=== PATIENT | female | born 1995 | race Caucasian/White ===

== ENCOUNTER 2023-07-05 07:42 | Outpatient (CLI) | payer BC, SELFPAY | END 2023-07-05 07:43 | disposition home or self-care (01) | LOC: NFLDREF 07-17 11:49 | PROVIDERS: Visit Provider Obstetrics & Gynecology | DX: Z13.220 Encounter for screening for lipoid disorders (principal); Z13.228 Encounter for screening for other metabolic disorders | CPT/HCPCS: 80048; 80061 ==

== ENCOUNTER 2024-01-28 16:42 | Outpatient (CLI) | payer OTHER, SELFPAY ==
--- NOTE | 2024-01-28 17:00 | CRLHL7_ITS ---
For Patients: As a result of the Cures Act, medical imaging exams and procedure reports are released immediately into your electronic medical record. You may view this report before your referring provider. If you have questions, please contact your health care provider. INDICATION: First trimester scan, establish dates. COMPARISON: None. TECHNIQUE: Real-time baca-scale imaging of the pelvis was performed. FINDINGS: Sonographic imaging demonstrates a single living intrauterine gestation. The embryo demonstrates a regular cardiac rate measuring 176 beats per minute. The embryo`s crown-rump length measurement of 2.2 cm corresponds to a gestational age of 8 weeks 6 days with a sonographic due date of 09/02/2024. There is a normal-appearing yolk sac. There are no gross abnormalities noted within the embryo at this early state of development. The gestational sac has a normal appearance. There is a 2.5 x 0.6 x 2.2 cm perigestational hemorrhage. The amount of fluid within the sac appears appropriate for gestational age. The cervix is closed. The myometrium appears normal. The ovaries are of normal size. Corpus luteal cyst right ovary. There are no suspicious fluid collections noted in the cul-de-sac. IMPRESSION: Single living intrauterine with sonographic gestational age 8 weeks 6 days and sonographic due date of 09/02/2024. Subchorionic hemorrhage measures 2.5 x 0.6 x 2.2 cm. Dictated by Shad Jacques MD @ 01/29/2024 12:14:15 PM (Electronically Signed)
== END 2024-01-28 16:43 | disposition home or self-care (01) ==
LOC: US 16:44
PROVIDERS: Visit Provider Physician Assistant
DX: Z34.91 Encounter for supervision of normal pregnancy, unspecified, first trimester (principal); O20.9 Hemorrhage in early pregnancy, unspecified; Z3A.08 8 weeks gestation of pregnancy
CPT/HCPCS: 76817; 86592; 86703; 86704; 86706; 86762; 86787; 86803; 86850; 86900; 86901; 87086; 87340; 87491; 87591

== ENCOUNTER 2024-01-28 18:18 | Outpatient (CLI) | payer OTHER, SELFPAY ==
[2024-01-28 21:07] LABS: Chlamydia DNA Amplified* NOT DETECTED (No Detected); GC DNA Amplified* NOT DETECTED (No Detected)
== END 2024-01-28 18:19 | disposition home or self-care (01) ==
PROVIDERS: Visit Provider Physician Assistant
DX: Z34.91 Encounter for supervision of normal pregnancy, unspecified, first trimester (principal); Z3A.08 8 weeks gestation of pregnancy
CPT/HCPCS: 86592; 86703; 86704; 86706; 86762; 86787; 86803; 86850; 86900; 86901; 87086; 87340; 87491; 87591

== ENCOUNTER 2024-04-21 07:15 | Outpatient (CLI) | payer OTHER, SELFPAY ==
--- NOTE | 2024-04-21 07:15 | CRLHL7_ITS ---
For Patients: As a result of the Century Cures Act, medical imaging exams and procedure reports are released immediately into your electronic medical record. You may view this report before your referring provider. If you have questions, please contact your health care provider. HISTORY: anatomic survey. COMPARISON: Report of the early OB ultrasound from 01/28/2024 TECHNIQUE: Ultrasound examination of the is performed with transabdominal technique. FINDINGS: A single intrauterine gestation is seen in variable presentation with regular cardiac activity at 155 beats per minute. The placenta is posterior and is free of the cervical os. The placental grade is 0 and the amniotic fluid volume is normal. Single deepest vertical pocket: 3.4. The cervix is nondilated and is normal in length at 4.0 cm. BPD: 4.5 cm 19 weeks 5 days HC: 18.0 cm 20 weeks 3 days AC: 15.3 cm 20 weeks 3 days. Thirty-sixth percentile. FL: 3.0 cm 19 weeks 3 days The estimated age by ultrasound is 20 weeks 0 days, with an estimated date of delivery of 09/08/2024. This represents a slight decrease interatrial growth compared with the clinical age of 20 weeks 5 days and the previous ultrasound.. The ultrasound ratios are normal. The estimated weight of 330 grams is at the 14th percentile based on the clinical dates. The anatomic survey demonstrates normal appearing intracranial structures with a normal septum pellucidum and normal cerebellum. The nuchal thickness is normal at 5 mm, and the lateral ventricle is normal in diameter at 4 mm. The upper lip, 4 chamber heart, left and right ventricular outflow tracts, diaphragm, stomach, cord insertion site, 3-vessel cord, kidneys, bladder and spine are normal in appearance. IMPRESSION: 1. Single intrauterine gestation in variable presentation with regular cardiac activity. 2. Estimated gestational age is 20 weeks 0 days. 3. Slight decrease interatrial growth compared with the clinical age of 20 weeks 5 days and the previous ultrasound.. 4. Estimated weight of 330 grams is at the 14th percentile based on the clinical dates. Dictated by Octavio Alvarado MD @ 04/21/2024 11:34:28 AM (Electronically Signed)
== END 2024-04-21 07:16 | disposition home or self-care (01) ==
LOC: US 07:15
PROVIDERS: Visit Provider Obstetrics & Gynecology
DX: Z34.92 Encounter for supervision of normal pregnancy, unspecified, second trimester (principal); Z3A.20 20 weeks gestation of pregnancy
CPT/HCPCS: 76805

== ENCOUNTER 2024-06-10 08:00 | Outpatient (CLI) | payer OTHER, SELFPAY | END 2024-06-10 08:01 | disposition home or self-care (01) | LOC: NFLDREF 06-15 02:40 | PROVIDERS: Visit Provider Obstetrics & Gynecology | DX: Z34.82 Encounter for supervision of other normal pregnancy, second trimester (principal) | CPT/HCPCS: 86592 ==

== ENCOUNTER 2024-07-10 07:04 | Outpatient (CLI) | payer OTHER, SELFPAY | END 2024-07-10 07:05 | disposition home or self-care (01) | LOC: US 07:05 | PROVIDERS: Visit Provider Obstetrics & Gynecology | DX: O36.5930 Maternal care for other known or suspected poor fetal growth, third trimester, not applicable or unspecified (principal); Z3A.30 30 weeks gestation of pregnancy | CPT/HCPCS: 76816; 76819; 76820 ==

== ENCOUNTER 2024-07-16 09:10 | Outpatient (CLI) | payer OTHER, SELFPAY ==
--- NOTE | 2024-07-16 09:15 | CRLHL7_ITS ---
For Patients: As a result of the Century Cures Act, medical imaging exams and procedure reports are released immediately into your electronic medical record. You may view this report before your referring provider. If you have questions, please contact your health care provider. INDICATION: IUGR COMPARISON: 07/10/2024 TECHNIQUE: Color doppler and spectral Doppler analysis of the umbilical artery performed. FINDINGS: Sonographic imaging demonstrates a single living intrauterine gestation. Fetus demonstrates a regular cardiac rate of 146 beats per minute. Fetus has a vertex. The umbilical artery demonstrates adequate diastolic blood flow. The S/D ratio measures 2.5. The amniotic fluid volume appears normal and there is a single deepest pocket measurement of 3.3 cm. IMPRESSION: Normal SD ratio 2.5. Dictated by Shad Jacques MD @ 07/16/2024 1:07:30 PM (Electronically Signed)
== END 2024-07-16 09:11 | disposition home or self-care (01) ==
LOC: US 09:11
PROVIDERS: Visit Provider Obstetrics & Gynecology
DX: O36.5990 Maternal care for other known or suspected poor fetal growth, unspecified trimester, not applicable or unspecified (principal)
CPT/HCPCS: 76815; 76820

== ENCOUNTER 2024-07-24 09:58 | Outpatient (CLI) | payer OTHER, SELFPAY ==
--- NOTE | 2024-07-24 10:00 | CRLHL7_ITS ---
For Patients: As a result of the Cures Act, medical imaging exams and procedure reports are released immediately into your electronic medical record. You may view this report before your referring provider. If you have questions, please contact your health care provider. OB ULTRASOUND FOLLOWUP LIMITED, 07/24/2024 CLINICAL HISTORY: IUGR. TECHNIQUE: Real time baca scale imaging of the fetus was performed transabdominally. COMPARISON: 07/16/2024, 07/10/2024, 04/21/2024. FINDINGS: ALVINO by LMP: 09/03/2024. GA: 34 weeks 1 day. Gestation: Single. Cervix: Not visualized. Positioning: Vertex. Amniotic Fluid: 5.6 cm SDP. Placenta: Transabdominal. Placenta Position: Posterior. Dopplers: Heart Rate: 145 bpm. Umbilical Artery: 2.2-2.4 S/D. IMPRESSION: Adequate diastolic flow within the umbilical artery with S/D ratio measuring between 2.2-2.4, within normal limits. Shad Jacques M.D. Diagnostic Radiologist [email or web address] Transcribed: 11:39 am DW/Dictated by: Shad Jacques MD @ 07/24/2024 10:33:00 AM (Electronically Signed)
== END 2024-07-24 09:59 | disposition home or self-care (01) ==
LOC: US 09:59
PROVIDERS: Visit Provider Obstetrics & Gynecology
DX: O36.5930 Maternal care for other known or suspected poor fetal growth, third trimester, not applicable or unspecified (principal); Z3A.34 34 weeks gestation of pregnancy
CPT/HCPCS: 76815; 76820

== ENCOUNTER 2024-07-31 12:54 | Outpatient (CLI) | payer OTHER, SELFPAY ==
--- NOTE | 2024-07-31 13:00 | CRLHL7_ITS ---
For Patients: As a result of the Century Cures Act, medical imaging exams and procedure reports are released immediately into your electronic medical record. You may view this report before your referring provider. If you have questions, please contact your health care provider. INDICATION: IUGR TECHNIQUE: Ultrasound OB pelvis transabdominal. Real-time baca-scale imaging of the fetus was performed as well as color Doppler and spectral Doppler analysis of the umbilical artery. COMPARISON: Ob ultrasound 07/24/2024 FINDINGS: Single living intrauterine gestation. heart rate: 166 beats per minute. Presentation: Cephalic. Placenta: Posterior. Amniotic fluid deepest pocket: 5.2 cm. Umbilical artery S/D ratio: 2 Gestational age: 35 weeks 1 day. ALVINO: 09/03/2024 IMPRESSION.: Viable intrauterine . No abnormalities seen. Adequate diastolic flow within the umbilical artery with S/D ratio of 2, within normal limits Dictated by Roula Porras MD @ 08/03/2024 12:13:03 PM (Electronically Signed)
== END 2024-07-31 12:55 | disposition home or self-care (01) ==
LOC: US 12:55
PROVIDERS: Visit Provider Obstetrics & Gynecology
DX: O36.5930 Maternal care for other known or suspected poor fetal growth, third trimester, not applicable or unspecified (principal); Z3A.35 35 weeks gestation of pregnancy
CPT/HCPCS: 76815; 76820

== ENCOUNTER 2024-08-06 08:04 | Outpatient (CLI) | payer OTHER, SELFPAY ==
--- NOTE | 2024-08-06 08:15 | CRLHL7_ITS ---
For Patients: As a result of the Century Cures Act, medical imaging exams and procedure reports are released immediately into your electronic medical record. You may view this report before your referring provider. If you have questions, please contact your health care provider. INDICATION: IUGR TECHNIQUE: Limited transabdominal two-dimensional baca-scale ultrasound examination. COMPARISON: 07/31/2024 FINDINGS: There is a living fetus in cephalic lie with gestational age of 36 weeks by LMP and 34 weeks 3 days by today`s measurements. EDC based on LMP is 09/03/2024. BPD: 8.8 cm, 35 weeks 5 days Head circumference: 31.9 cm, 36 weeks Abdominal circumference: 30.7 cm, 34 weeks 4 days Femur length: 6.0 cm, 31 weeks 2 days HC/AC: 1.04 The weight is estimated at 2312 grams, the 8th percentile. The heart rate is measured at 147 beats per minute and the rhythm appears regular. The amniotic fluid volume is within normal limits with single deepest pocket of 6.1 cm. The placenta is posterior and superior to the cervical os. There is no evidence of previa. Cord arterial S/D = 2.8. IMPRESSION: 1. Living fetus in cephalic lie with gestational age of 36 weeks by LMP and 34 weeks 3 days by today`s measurements. EDC based on LMP is 09/03/2024. 2. weight estimated at 2312 grams, the 8th percentile. Dictated by Percy House MD @ 08/07/2024 5:11:13 AM (Electronically Signed)
== END 2024-08-06 08:05 | disposition home or self-care (01) ==
LOC: US 08:05
PROVIDERS: Visit Provider Obstetrics & Gynecology
DX: O36.5930 Maternal care for other known or suspected poor fetal growth, third trimester, not applicable or unspecified (principal); Z3A.35 35 weeks gestation of pregnancy
CPT/HCPCS: 76816; 76820

== ENCOUNTER 2024-08-06 10:38 | Outpatient (CLI) | payer OTHER, SELFPAY ==
[2024-08-07 12:42] LABS: Strep B DNA Probe Negative (Negative)
[2024-08-07 12:49] LABS: Strep B Susceptibility Needed? No
== END 2024-08-06 10:39 | disposition home or self-care (01) ==
LOC: NFLDREF 10:38
PROVIDERS: Visit Provider Obstetrics & Gynecology
DX: Z34.82 Encounter for supervision of other normal pregnancy, second trimester (principal)
CPT/HCPCS: 87081; 87653

== ENCOUNTER 2024-08-13 12:13 | Outpatient (CLI) | payer OTHER, SELFPAY ==
--- NOTE | 2024-08-13 12:15 | CRLHL7_ITS ---
For Patients: As a result of the Cures Act, medical imaging exams and procedure reports are released immediately into your electronic medical record. You may view this report before your referring provider. If you have questions, please contact your health care provider. OB ULTRASOUND LIMITED W/UMBILICAL ARTERY DOPPLER, 08/13/2024 CLINICAL HISTORY: IUGR. COMPARISON: 08/06/2024, 07/31/2024, 07/24/2024. TECHNIQUE: Real time baca scale imaging of the fetus was performed transabdominal. FINDINGS: ALVINO by LMP/US: 09/03/2024. GA: 37 weeks 0 days. GESTATION: Single. CERVIX: Not visualized. POSITIONING: Vertex. AMNIOTIC FLUID: 4.2 cm SDP. PLACENTA: Technique: TA. Placenta Position: Posterior. DOPPLERS: Heart Rate: 152 bpm. Umbilical Artery 2.4 S/D. IMPRESSION: Umbilical artery S/D ratio 2.4. Shad Jacques M.D. Diagnostic Radiologist [email or web address] Transcribed: 9:47 am DW/Dictated by: Shad Jacques MD @ 08/14/2024 6:53:00 AM (Electronically Signed)
== END 2024-08-13 12:14 | disposition home or self-care (01) ==
LOC: US 12:14
PROVIDERS: Visit Provider Obstetrics & Gynecology
DX: O36.5930 Maternal care for other known or suspected poor fetal growth, third trimester, not applicable or unspecified (principal); Z3A.37 37 weeks gestation of pregnancy
CPT/HCPCS: 76815; 76820

== ENCOUNTER 2024-08-19 12:12 | Outpatient (CLI) | payer OTHER, SELFPAY ==
--- NOTE | 2024-08-19 12:15 | CRLHL7_ITS ---
For Patients: As a result of the Cures Act, medical imaging exams and procedure reports are released immediately into your electronic medical record. You may view this report before your referring provider. If you have questions, please contact your health care provider. AVLINO: 09/03/2024. GA: 37w, 6d. Single. INDICATION: IUGR. CERVIX: Not visualized. POSITIONING: Vertex. AMNIOTIC FLUID: 5.5 cm SDP. PLACENTA: Technique: Transabdominal. PLACENTA POSITION: Posterior. DOPPLER: heart rate: 167 bpm. Umbilical artery: 2.5 S/D. IMPRESSION: Umbilical artery S/D ratio 2.5. Shad Jacques M.D. Diagnostic Radiologist [email or web address] bM/Dictated by: Shad Jacques MD @ 08/19/2024 12:40:00 PM (Electronically Signed)
== END 2024-08-19 12:13 | disposition home or self-care (01) ==
LOC: US 12:13
PROVIDERS: Visit Provider Obstetrics & Gynecology
DX: O36.5930 Maternal care for other known or suspected poor fetal growth, third trimester, not applicable or unspecified (principal); Z3A.37 37 weeks gestation of pregnancy
CPT/HCPCS: 76815; 76820

== ENCOUNTER 2024-08-21 16:35 | Inpatient (IN) | payer OTHER, SELFPAY ==
[2024-08-21 16:58] VITALS: BP 114/68; PULSE 86; PULSE 87; TEMP 36.9; O2SAT 98
[2024-08-21 17:44] VITALS: BMI 31.4
--- NOTE | 2024-08-21 18:08 | P.LDBA_ITS ---
Subjective History of Present Illness Narrative: Patient is being admitted to Labor and Delivery for IOL due to IUGR. She is a 29 year old at 38 1/7 weeks gestation. Her full history and physical was dictated by Dr. NOVAK on 08/13/24. Please see this for details. Specific Issues/Plans G 2 P 1 Partner: Nikolai. Son: Elian. Baby: Girl! Niurka Mcmillan test: low risk, female H&P: By KISHORE on 08/13/2024 # IUGR dx made at 32-week visit: EFW 4.9%, AC 19%, FL<3%, normal Dopplers, fluid normal - antepartum testing worksheet submitted * UA Dopplers weekly * NST weekly * Growth US at 36 weeks: EFW 2312g at 8%ile (FL <3%ile). Normal UA doppler/MVP. * Delivery at 38-39 weeks * Declined MFM visit at 33wks. # Nausea and vomiting in [place] was causing insomnia, offered RX, pt declined # FAS US: EFW 13.8%, BPD 12.1%, HC 27.4%, AC 36.1, FL 6.8% Consider follow-up growth ultrasound at 28-32 weeks: Ordered for 32 weeks at her 28 week visit. 08/06/24 EFW 2312 grams, 8th percentile. Imagin01/28/2024 Dating and viability 04/21/2024 FAS normal, EFW 14%, AC 36% 07/10/2023 EFW 3# 7oz (4.9%), BPD 16%, HC 23%, AC 19%, FL<3%, SDP 4.3 cm, S/D 2.9 (normal) 07/16/2024 S/D 2.5, SDP 3.3 cm, vertex 08/06/2024: EFW 2312g at 8%ile (FL <3%ile). Normal UA doppler/MVP. Vaccinations: COVID: 03/17/2024 Flu: 03/17/2024 Tdap: 07/01/2024 RSV: N/A 32 week mental health: 07/10/24 Hgb: 07/24/24 12.1 GBS: 08/06/24 Negative. Pap: 07/12/2021:LGSIL/-HPV, 11/01 colp benign, pap 06/18/23: NIL/-HPV, repeat pap PP OB - Problem Based A/P Additional Plan (1) IUGR (intrauterine growth restriction) affecting care of mother: Problem details: EFW 4.9% at 32 weeks Status: Acute (2) : Status: Acute Plan 1. IOL started with placement of cook catheter 60mL/60mL, plan to also start IV Oxytocin at midnight per protocol. 2. GBS negative, no need for antibiotic prophylaxis. 3. Continuous monitoring. 4. Patient would like epidural prior to AROM. OB Exam Physical Exam Vital signs: Temp Pulse BP Pulse Ox 98.4 F 86 114/68 98 08/21/24 16:58 08/21/24 16:58 08/21/24 16:58 08/21/24 16:58 Detailed Labor and Delivery Exam Patient Gravid: Yes Dilation (cm): 1 Effacement (%): 70 Cervix position: posterior Consistency: medium Fetus (Single) Station: -2 Amniotic Membrane Status: intact Heart Rate Baseline: 140 Monitor Accelerations: Present Monitor Decelerations: None Sql Etl Developer Variability: Moderate (6-25)
[2024-08-21 19:27] VITALS: BP 94/52; PULSE 69; PULSE 71; TEMP 36.8; O2SAT 96
[2024-08-21 20:54] LABS: Basophils Percent Auto 0.1 % (0.0-3.0); Eosinophils Percent Auto 0.2 % (0.0-7.0); Hemoglobin* 12.5 gm/dL (12.0-16.0); Immature Granulocytes Pct Auto 0.4 %; Lymphocytes Percent Auto 23.1 % (20-44); Mean Corpuscular HGB Conc 34 gm/dL (32-36); Mean Corpuscular Hemoglobin 31 pg (26-34); Mean Corpuscular Volume 92 fL (80-100); Monocytes Percent Auto 5.9 % (0.0-11.0); Neutrophils Percent Auto 70.3 % (42.0-72.0); Platelet Count* 248 K/uL (140-440); Red Blood Count 4.04 m/uL (4.00-5.20); White Blood Count* 11.28 K/uL (4.50-11.00)
[2024-08-21 20:59] LABS: Slide Review Reflex No
[2024-08-21] MEDS: MORPHINE 10 MG/ML inj IM (21:46)
[2024-08-21] MEDS: hydrOXYzine pamoate 25 MG CAPSULE 100 MG PO (21:47)
[2024-08-21 22:00] VITALS: TEMP 36.7
[2024-08-21] MEDS: LACTATED RINGERS 1000 ML 1,000 ML 125 ML IV (23:54)
[2024-08-21] MEDS: OXYTOCIN 30 unit/500 ML in NS 30 UNIT/500 ML BAG IVPB (23:55)
[2024-08-21 23:59] VITALS: BP 94/53; PULSE 83; TEMP 36.9
[2024-08-22] VITALS (39 sets, daily range): BP systolic 82–124; BP diastolic 45–69; PULSE 62–108; RESP 16–18; TEMP 36.6–37.3; O2SAT 92–100
[2024-08-22] MEDS: ROPIVACAINE 0.2% 100 ml 100 ML 12 MG EPIDURAL (07:32)
[2024-08-22] MEDS: LIDOCAINE 2% (PF) 5 ML VIAL EPIDURAL (07:32)
[2024-08-22] MEDS: LACTATED RINGERS 1000 ML 1,000 ML 115 ML IV (07:40)
--- NOTE | 2024-08-22 07:55 | PM.ANBPRC ---
[facility] Medical History History of vaginal delivery (02/14/21) History of abnormal cervical Pap smear (06/17/20) ?Z87.42 - Personal history of other diseases of the female genital tract (ICD-10) Surgical History History of epidermal inclusion cyst excision ?Z98.890 - Other specified postprocedural states (ICD-10) ?Z87.2 - Personal history of diseases of the skin and subcutaneous tissue (ICD-10) History of wisdom tooth extraction (2019) ?K08.409 - Partial loss of teeth, unspecified cause, unspecified class (ICD-10) History of colposcopy ?Z98.890 - Other specified postprocedural states (ICD-10) Family History Paternal Grandmother Stroke Paternal Grandfather Stroke Maternal Grandfather Heart disease High cholesterol Mother Scoliosis Aunt Colon cancer Social History Narrative: Occupation: Occupational therapist. Marital status: . Uatsdin/cultural needs: no. Chemical or radiation exposure: no. Pre- tobacco use: no. Pre- alcohol use: 1-3 per month. Current tobacco use: no. Current alcohol use: no. Recreational drug use: no. Dietary restrictions: no. Blood transfusion acceptable in an emergency: yes. PSYCHOSOCIAL HISTORY: History of depression or currently depressed: Denies. Current or past physical, emotional, or sexual mistreatment: Denies. Problems that will make it hard to make it to appointments: Denies. What is your current living situation?: I presently have a place to live Problems where you live: no known problems In the past 12 months, utilities in danger of being shut off: no In past 12 months, lack of transportation kept you from medical appts, meetings, work, or getting things needed for daily living: no In the past 12 mos, have been you worried that your food would run out before you had money to buy more?: never true In the past 12 mos, the food you bought just didn't last and you didn't have money to buy more?: never true Smoking Status: Never smoker How often does anyone, including family, friends and others, physically hurt you: never How often does anyone, including family, friends and others, insult or talk down to you: never How often does anyone, including family, friends and others, threaten you with harm: never How often does anyone, including family, friends and others, scream or curse at you: never Meds Home Medications and Allergies Home Medications ?Medication ?Instructions ?Recorded ?Confirmed ?Type [id number] 3-fat com #1 27 1 cap PO .daily 01/28/24 08/21/24 History mg-1 mg-300 mg capsule Allergies Allergy/AdvReac Type Severity Reaction Status Date / Time dextromethorphan (From Allergy Intermediate Hives Verified 08/21/24 17:04 Mucinex DM) guaifenesin (From Mucinex DM) Allergy Intermediate Hives Verified 08/21/24 17:04 Sulfa (Sulfonamide Allergy Mild Hives Verified 08/21/24 17:04 Antibiotics) Results Labs Labs: Laboratory Results - last 24 hr 08/21/24 20:31 WBC 11.28 H RBC 4.04 Hgb 12.5 Hct 37.0 MCV 92 MCH 31 MCHC 34 RDW Coeff of Melissa 13.0 Plt Count 248 Neut % (Auto) 70.3 Lymph % (Auto) 23.1 [place] % (Auto) 5.9 Eos % (Auto) 0.2 Baso % (Auto) 0.1 Neut # (Auto) 7.90 H Lymph # (Auto) 2.60 [place] # (Auto) 0.70 Eos # (Auto) 0.00 Baso # (Auto) 0.00 Abs Immat Gran (auto) 0.00 Imm/Tot Granulo (auto) 0.4 Blood Type O Positive Antibody Screen NEGATIVE Vital Signs Vital Signs: Last Vital Signs Temp 98.5 F 08/22/24 06:07 Pulse 92 08/22/24 07:52 BP 108/56 L 08/22/24 07:52 Pulse Ox 100 08/22/24 07:53 Weight: 75.296 kg Height: 154.94 cm Anesthesia Procedures Epidural Insertion Patient Location: OB Start Time: :20 Stop Time: 08:20 Start Date: 08/22/24 Stop Date: 08/22/24 Reason for Block: procedure for pain Patient Position: sitting Performed By: Thalia Castro Preanesthetic Checklist: IV checked, risks and benefits discussed, monitors and equipment checked, pre-op evaluation, timeout performed and anesthesia consent Prep: chlorhexidine gluconate Monitoring: blood pressure monitoring, continuous pulse oximetry and heart rate Approach: midline Vertebral Space: lumbar (1-5) Epidural Technique: GEOVANNA saline Needle Type: Tuohy needle Injection Technique: continuous catheter (continuous catheter) Needle gauge: 17 Needle Length (cm): 10 cm Needle Insertion Depth (cm): 8 Catheter Gauge: 19 Catheter Type: multi-orifice Catheter at skin depth (cm): 15 Test Dose Result: negative and lidocaine 1.5% with epinephrine 1 to 200,000
[2024-08-22] MEDS: miSOPROStoL 800 MCG/4 TABLET PR (08:26)
[2024-08-22] MEDS: SILVER NITRATE APPLICATOR 1 EACH STICK..EA. 10 EACH TOPICAL (08:38)
--- NOTE | 2024-08-22 09:28 | PM.OBPNL ---
Subjective Time Seen by Provider: 07:35 Date Seen: 08/22/24 Narrative: Autumn is a 29yo at 38w2d GA admitted for IOL in the setting of FGR. is otherwise uncomplicated, aside from previous history of FGR where baby was AGA at delivery. IOL has included cook catheter and pitocin overnight. Patient requested epidural this morning, where shortly thereafter had urge to push with membranes noted at perineum. I presented urgently to bedside. Objective Exam: General: Alert oriented. In no acute distress. Comfortable with epidural. Cervix: 10/100/+2 NST: Category 1 Vital Signs: Last Vital Signs Temp 98.5 F 08/22/24 06:07 Pulse 81 08/22/24 09:22 BP 96/59 L 08/22/24 09:22 Pulse Ox 100 08/22/24 07:53 Assessment Station: -2 Amniotic Membrane Status: SROM Heart Rate Baseline: 140 Monitor Accelerations: Present Monitor Decelerations: None Plan Plan: Autumn is a 29-year-old at 38 weeks ongoing induction of labor for growth restriction. Induction has included cook and Pitocin, SROM occurred shortly after epidural placement. She is now complete and +2. Plan to start 2nd stage. Peds is not required at delivery is not severely growth restricted and normal dopplers. O+, GBS negative.
--- NOTE | 2024-08-22 09:34 | W.PM.VAGDEL1 ---
Procedure Procedure Done: Global Procedure Details: Normal spontaneous vaginal delivery Events: Other ( growth restriction) Intrapartal Events: Labor Induction Delivery monitor: external FHT Route of delivery: Laceration description: None Estimated blood loss (mL): 400 Anesthesia type: Epidural Disposition: floor Complications: None Narrative: Autumn is a 29 yo at 38w2d GA admitted for induction of labor in the setting of growth restriction. is complicated by growth restriction, history of FGR (AGA upon delivery). heart tones on admission were category 1. Her labor was induced with Cook catheter and low-dose Pitocin and epidural was utilized for pain management. Status of bag of bright: SROM occurred intrapartum. heart tones during active labor were category 1 and 2, for intermittent variable decelerations. She was complete at 0754 and started pushing at 0758. She made excellent descent throughout the second stage of labor, and had a normal spontaneous vaginal delivery at 0807. heart tones during second stage of labor were category 2 for variable decelerations, with rapid return to normal baseline with moderate variability. Baby delivered OA, restituted ALEXIS and the anterior and posterior shoulders delivered without difficulty. Nuchal cord: absent. The cord was clamped and cut after delayed cord clamping. Active management of the third stage occurred with IV pitocin and gentle cord traction and the placenta delivered spontaneous and intact at 0813. Cord gases sent: no Cord blood sent for infant ABO: no details: - Liveborn female fetus at 0807 - weight 2.88kg - APGARs were 8 and 9 at 1 and 5 minutes respectively Perineum and vagina were inspected, and the following lacerations were noted: none, intact. No repair was required. There was intermittent lower uterine segment atony, that responded well to bimanual massage and cytotec pr. Cervix was run in it's entirety, no laceration seen. Excellent hemostasis was noted. The following counts were correct: sponges, needles, instruments. Mother and in stable condition following the . [place] Infant Gender: Female presentation: vertex Placental Delivery Description: Spontaneous Cord Description: 3 Vessels total score - 1 minute: 8 total score - 5 minute: 9
[2024-08-22] MEDS: IBUPROFEN 600 MG TABLET PO ×2 (15:33→21:31)
[2024-08-22] MEDS: ACETAMINOPHEN 500 MG TABLET 1000 MG PO ×2 (16:52→23:45)
[2024-08-23] MEDS: IBUPROFEN 600 MG TABLET PO ×3 (03:30→19:55)
[2024-08-23 03:45] VITALS: BP 104/69; PULSE 55; RESP 18; TEMP 36.6; O2SAT 97
[2024-08-23 05:25] LABS: Hemoglobin* 10.9 gm/dL (12.0-16.0)
[2024-08-23] MEDS: ACETAMINOPHEN 500 MG TABLET 1000 MG PO ×2 (05:59→23:11)
[2024-08-23 08:12] VITALS: BP 102/68; PULSE 61; RESP 16; TEMP 37.8; O2SAT 97
--- NOTE | 2024-08-23 08:23 | PM.OBPNVD1 ---
OB - PN:Subj Subjective Time Seen by Provider: 08:23 Date Seen: 08/23/24 Narrative: Autumn is a 29 yo s/p following IOL at 38w2d in the setting of growth restriction (driven by FL primarily). Baby girl was noted to be AGA at time of delivery. Autumn notes feeling well since delivery. She was able to get some rest overnight. She does note some uterine cramping, this is primarily bothersome with . She is utilizing ibuprofen and Tylenol for pain control. She does not have pain outside this time. Lochia is described as moderate, no heavy bleeding or passage of clots. Ambulates without difficulty, no dizziness or lightheadedness. AM hemoglobin of 10.9. She is tolerating p.o. intake without nausea vomiting. Void spontaneously, passing flatus, no be bowel movement yet. is going well overall, she did have some latch difficulty initially and intends to stay inpatient until tomorrow (PPD2) for support. OB - PN: Obj Exam Physical Exam: Vital signs: Temp Pulse Resp BP Pulse Ox O2 Del Method 100.1 F H 61 16 102/68 97 Room Air 08/23/24 08:12 08/23/24 08:12 08/23/24 08:12 08/23/24 08:12 08/23/24 08:12 08/23/24 08:12 Narrative: General: Alert and oriented, in no acute distress Psych: Appropriate mood and affect Abdomen: Soft, nondistended. Minimal tenderness of palpation of the uterus, consistent with her state. Fundus palpates firm at 2 below umbilicus. Extremities: Minimal trace bilateral edema. Calves are not edematous, red or tender. OB - PN: Obj Data Labs Labs: Laboratory Results - last 24 hr 08/23/24 04:37 Hgb 10.9 L OB - PN: A/P Delivery Assessment and Plan (1) IUGR (intrauterine growth restriction) affecting care of mother: Problem details: EFW 4.9% at 32 weeks, AGA weight following delivery Status: Acute (2) : Status: Acute (3) care and examination of lactating mother: Status: Acute Plan Autumn is a 29yo seen on PPD1 from following IOL for FGR, baby girl was noted to be AGA after delivery. Autumn is progressing through milestones appropriately. Vital signs reviewed and are within normal limits. She has noticed more pronounced uterine cramping with this time, explained this is common in subsequent deliveries - recommend ibuprofen and Tylenol will aid with pain control. No nausea/vomiting, fevers chills. Tolerating p.o. intake, spontaneously voiding, passing flatus, moderate lochia. Recommend routine care lactating support. Patient intends to remain inpatient tonight, hopeful to meet with tomorrow. Dispo: Inpatient overnight, DC to home tomorrow
[2024-08-23 11:33] VITALS: TEMP 37
[2024-08-23] MEDS: DOCUSATE SODIUM 100 MG CAPSULE PO (11:35)
[2024-08-23 15:50] VITALS: BP 106/65; PULSE 64; RESP 16; TEMP 36.7; O2SAT 97
[2024-08-23 18:31] LABS: Rapid Plasma Reagin (RPR) Non Reactive (Non Reactive)
[2024-08-23 19:48] VITALS: BP 117/70; PULSE 64; RESP 16; TEMP 36.9; O2SAT 97
--- NOTE | 2024-08-23 19:51 | PM.ANPOST ---
Post Anesthesia Note Post Anesthesia Note Patient seen: Inpatient Respiratory Status: adequate Cardiovascular Status: adequate Mental Status: baseline Pain: adequate Temp: baseline Anesthetic awareness: no Complications: none Follow care: none
[2024-08-24 01:27] VITALS: BP 103/64; PULSE 60; RESP 16; TEMP 36.6
[2024-08-24] MEDS: IBUPROFEN 600 MG TABLET PO (02:05)
[2024-08-24 08:08] VITALS: BP 108/66; PULSE 64; RESP 18; TEMP 36.7; O2SAT 97
--- NOTE | 2024-08-24 08:22 | P.DS_ITS ---
DS: Providers Provider Date Seen: 08/24/24 Date of admission: 08/21/24 16:35 Primary care physician: Not a Local Provider Admitting Clinician: Arleen Westbrook MD Attending Physician on discharge: Valerie Degroot CNM DS: Diagnosis Discharge Diagnosis (1) care and examination of lactating mother: Status: Acute (2) Anemia due to acute blood loss: Status: Acute Exam Narrative: Exam Narrative: GENERAL APPEARANCE:? normal affect, alert, no distress MOOD:? appropriate CHEST:? clear to auscultation HEART:? regular rate and rhythm ABDOMEN:? soft, non-tender the uterine fundus is 1 below Umbilicus, Midline and is appropriate for the stage of recovery. PERINEUM:? mild edema of the perineum. EXTREMITIES:? normal and no edema Const: Vital Signs, click to edit/add: Vital Signs - 24 hr 08/23/24 11:33 08/23/24 15:50 08/23/24 19:48 Temperature 98.6 F 98.0 F 98.4 F Pulse Rate [Pulse Oximeter] 64 64 Respiratory Rate 16 16 Blood Pressure [Ri ght Arm] 106/65 117/70 Pulse Oximetry 97 97 Oxygen Delivery Me thod Room Air Room Air 08/24/24 01:27 08/24/24 08:08 Temperature 98 F 98.0 F Pulse Rate [Pulse Oximeter] 60 64 Respiratory Rate 16 18 Blood Pressure [Ri ght Arm] 103/64 108/66 Pulse Oximetry 97 Oxygen Delivery Me thod Room Air Room Air Documenting provider has reviewed patient's vital signs: yes OB - DS: Summary Hospital Course Hospital Course: Autumn is a 29 y.o. G 2 P 2 who was admitted to [facility] for IOL due to IUGR. ?She had a NVD that was uncomplicated. The patient feels well. ?The pain is well controlled with current medications. ?She has no new complaints. ?She is breast feeding and reports things are going well. the patient has done well.? Vitals have been stable.? She has remained afebrile.? Has a good appetite, is tolerating a general diet. ?She is voiding without difficulty.? She is passing gas and has had a very small bowel movement.? She is ambulating and denies any dizziness.? Has small amount of rubra lochia. She is planning IUD for prevention. Problems: Anemia Discharge home with baby.? Follow up in 2 weeks and 6 weeks.? , may see if needed? Hgb 10.9. Desires to continue with at home.?? For pain control of perineum, breast and pelvic pain, take 600 mg Ibuprofen ever y 6 hours as needed by mouth or 1000 mg acetaminophen (Tylenol) every 6 hours by mouth as needed. You can alternate these so you are taking something every 3 hours as needed. A heating pad can also be used for your abdomen or breasts. You may also take docusate sodium up to twice daily to soften your stools and help to prevent constipation. You may wean off of it when your stools return to normal.? Peripartum Data Infant delivery method: Vaginal Laceration description: None complications: none Anthony Infant Gender: Female Infant Discharge Plan: Home Status at Discharge Functional status at discharge: independent ambulation Overall status at discharge: patient is progressing back to baseline Time Spent with Patient Time attestation: Total time spent providing and/or coordinating discharge services: Time spent: Less than 30 minutes Discharge Plan Discharge Disposition: Home, Self-Care Date of Admission: 08/21/24 16:35 Attending Provider on Discharge: Valerie Degroot Consulting Providers: Elen Alvarado Primary Care Provider: Provider,Not a Local Condition: Stable Anticipated Discharge Date/Time: 08/24/24 12:00 Discharge Medications: New docusate sodium 100 mg Capsule 100 mg PO DAILY Qty: 90 0RF ibuprofen 600 mg Tablet 600 mg PO Q6H PRNQty: 60 0RF acetaminophen 500 mg Tablet 1,000 mg PO Q6H PRNQty: 0 0RF Continued [id number] 3-fat com #1 27-1-300 mg capsule 1 cap PO .daily Discharge Orders: Discharge Order (Routine); Ordered 08/24/24 Ordered By: Valerie Degroot Patient Education: OB Over the Counter Medication Information, OB Vaginal/Breast Feeding Additional Instructions: Discharge instructions were reviewed with the patient including signs and symptoms of infection and home going medications Nothing vaginally for 6 weeks: no tampons or intercourse Off Work or School for 6 weeks 2-week visit: discuss infant feeding concerns, review control options and screen for anxiety/depression. 6-week visit for an annual exam. consultation services are available to all mothers and babies for the first year after delivery.? To make an appointment, please call [phone]. Activity Level: Activity as Tolerated Discharge Diet: Regular Follow Up Appointments: [facility] [Provider Group] Forms: [email or web address] Info Instructions
[2024-08-24] MEDS: DOCUSATE SODIUM 100 MG CAPSULE PO (08:31)
== END 2024-08-24 13:15 | disposition home or self-care (01) | DRG 806 ==
PROVIDERS: Obstetrics & Gynecology; Admitting Provider Obstetrics & Gynecology; Visit Provider Obstetrics & Gynecology
DX: O76 Abnormality in fetal heart rate and rhythm complicating labor and delivery (principal); D62 Acute posthemorrhagic anemia; Z37.0 Single live birth; Z3A.38 38 weeks gestation of pregnancy; O62.2 Other uterine inertia; O90.81 Anemia of the puerperium
CPT/HCPCS: 01967; 36415; 59200; 85018; 85025; 86592; 86850; 86900; 86901; 88307; A9270; C1726; J2270; J2795; J7120

== ENCOUNTER 2024-10-08 10:10 | Outpatient (CLI) | payer OTHER, SELFPAY ==
[2024-10-10 10:20] LABS: HPV Source Cervix; HPV, High Risk by TMA Not Detected
== END 2024-10-08 10:11 | disposition home or self-care (01) ==
PROVIDERS: Visit Provider Registered Nurse
DX: Z12.4 Encounter for screening for malignant neoplasm of cervix (principal); Z11.51 Encounter for screening for human papillomavirus (HPV)
CPT/HCPCS: 87624; 87625; 88141; 88142